=== PATIENT | male | born 1970 | race African-American/Black ===

== ENCOUNTER 2022-07-20 13:56 | Inpatient (IN) | payer OTHER ==
[2022-07-20 15:54] VITALS: BMI 20.3
[2022-07-20] MEDS ORDERED: POLYETHYLENE GLYCOL (HEALTHYLAX) 3350 17 GM PACKET PO PRN (18:22)
[2022-07-20] MEDS ORDERED: BISMUTH SUBSALICYLATE 524 MG/30 ML PO PRN (18:22)
[2022-07-20] MEDS ORDERED: ONDANSETRON *ODT* 4 MG TABLET SL PRN (18:22)
[2022-07-20] MEDS ORDERED: BENZOCAINE/MENTHOL (CHLORASEPTIC ) LOZENGE MM PRN (18:22)
[2022-07-20] MEDS ORDERED: NICOTINE 10 MG CARTRIDGE (INHALER) IH PRN (18:22)
[2022-07-20] MEDS ORDERED: NALOXONE HCL (KLOXXADO) 8 MG SPRAY NS PRN (18:22)
[2022-07-20] MEDS ORDERED: DICYCLOMINE HCL 10 MG CAPSULE PO PRN (18:22)
[2022-07-20] MEDS ORDERED: LOPERAMIDE HCL 2 MG CAPSULE PO PRN (18:22)
[2022-07-20] MEDS ORDERED: ACETAMINOPHEN 325 MG TABLET (FP) PO PRN (18:22)
[2022-07-20] MEDS ORDERED: MAGNESIUM HYDROX 2400MG/30ML ORAL SUSPENSION 30 ML CUP PO PRN (18:22)
[2022-07-20] MEDS ORDERED: MAG HYDROX/AL HYDROX/SIMETH 30 ML UNIT-DOSE CUP PO PRN (18:22)
[2022-07-20] MEDS: PRENATAL VITAMINS W/ FOLIC ACID TABLET (FP) PO SCH (19:47)
[2022-07-20] MEDS: IBUPROFEN 400 MG TABLET (FP) PO PRN (19:47)
[2022-07-20] MEDS: NICOTINE 21 MG/24 HOURS TOPICAL PATCH TD SCH (19:53)
[2022-07-20] MEDS ORDERED: MELATONIN 5 MG TABLETS PO SCH (22:00)
[2022-07-20] MEDS: SULFAMETHOXAZOLE/TRIMETHOPRIM 800MG/160MG D.S. TABLET PO SCH (22:10)
[2022-07-20] MEDS: THIAMINE HCL 100 MG TABLET (FP) PO SCH (22:10)
[2022-07-20] MEDS: diazePAM 5 MG TABLET PO SCH (22:12)
[2022-07-21] MEDS: diazePAM 5 MG TABLET PO SCH ×4 (05:45→22:31)
[2022-07-21] MEDS: ACETAMINOPHEN 325 MG TABLET (FP) PO PRN (05:48)
[2022-07-21] MEDS: SULFAMETHOXAZOLE/TRIMETHOPRIM 800MG/160MG D.S. TABLET PO SCH ×2 (10:44→22:31)
[2022-07-21] MEDS: METHOCARBAMOL 500 MG TABLET PO PRN (10:44)
[2022-07-21] MEDS: hydrOXYzine PAMOATE 25 MG CAPSULE (FP) PO PRN (10:45)
[2022-07-21] MEDS: PRENATAL VITAMINS W/ FOLIC ACID TABLET (FP) PO SCH (10:45)
[2022-07-21] MEDS: NICOTINE 21 MG/24 HOURS TOPICAL PATCH TD SCH (10:45)
[2022-07-21 11:14] LABS: HEMATOCRIT 33.3 % (35.4-49); MCH 31.9 pg (25.7-33.7); MCHC 33.1 g/dl (32.0-35.9); MEAN CELL VOLUME 96.4 fl (80-96); MEAN PLT VOLUME 8.4 fl (7.5-11.1); PLATELET COUNT 382 10^3/uL (134-434); RBC 3.45 M/mm3 (4.00-5.60); RDW 14.6 % (11.9-15.9); WHITE BLOOD COUNT 7.1 K/mm3 (4.0-10.0)
[2022-07-21 11:29] LABS: CALCIUM 8.5 mg/dL (8.5-10.1)
[2022-07-21 11:30] LABS: ALBUMIN 2.6 g/dl (3.4-5.0); BLOOD UREA NITROGEN 26.1 mg/dL (7-18)
[2022-07-21 11:33] LABS: CREATININE 0.9 mg/dL (0.55-1.3)
[2022-07-21 11:34] LABS: BILIRUBIN,TOTAL 0.2 mg/dL (0.2-1)
[2022-07-21 11:35] LABS: TOT PROT 6.8 g/dl (6.4-8.2)
[2022-07-21] MEDS: IBUPROFEN 600 MG TABLET (FP) PO PRN (18:11)
[2022-07-21] MEDS ORDERED: SUVOREXANT 10 MG TABLET PO PRN (22:00)
[2022-07-21] MEDS: QUEtiapine FUMARATE 100 MG TABLET (FP) PO SCH (22:32)
[2022-07-21] MEDS: THIAMINE HCL 100 MG TABLET (FP) PO SCH (22:32)
[2022-07-21] MEDS: IBUPROFEN 400 MG TABLET (FP) PO PRN (22:36)
[2022-07-22] MEDS: diazePAM 5 MG TABLET PO SCH ×3 (05:44→23:00)
[2022-07-22] MEDS: IBUPROFEN 600 MG TABLET (FP) PO PRN (05:46)
[2022-07-22] MEDS: SULFAMETHOXAZOLE/TRIMETHOPRIM 800MG/160MG D.S. TABLET PO SCH ×2 (10:34→22:59)
[2022-07-22] MEDS: PRENATAL VITAMINS W/ FOLIC ACID TABLET (FP) PO SCH (10:34)
[2022-07-22] MEDS: hydrOXYzine PAMOATE 25 MG CAPSULE (FP) PO PRN (10:34)
[2022-07-22] MEDS: NICOTINE 21 MG/24 HOURS TOPICAL PATCH TD SCH (10:34)
[2022-07-22] MEDS ORDERED: cloNIDine HCL 0.1 MG TABLET PO ONE (13:30)
[2022-07-22] MEDS: QUEtiapine FUMARATE 100 MG TABLET (FP) PO SCH (22:59)
[2022-07-22] MEDS: THIAMINE HCL 100 MG TABLET (FP) PO SCH (23:40)
[2022-07-23] MEDS: diazePAM 5 MG TABLET PO SCH ×2 (06:06→17:25)
[2022-07-23] MEDS: IBUPROFEN 600 MG TABLET (FP) PO PRN ×2 (06:07→22:25)
[2022-07-23] MEDS: NICOTINE 21 MG/24 HOURS TOPICAL PATCH TD SCH (10:35)
[2022-07-23] MEDS: PRENATAL VITAMINS W/ FOLIC ACID TABLET (FP) PO SCH (10:35)
[2022-07-23] MEDS: SULFAMETHOXAZOLE/TRIMETHOPRIM 800MG/160MG D.S. TABLET PO SCH (10:36)
[2022-07-23] MEDS: METHOCARBAMOL 500 MG TABLET PO PRN (10:36)
[2022-07-23] MEDS: hydrOXYzine PAMOATE 25 MG CAPSULE (FP) PO PRN (10:36)
[2022-07-23 13:02] LABS: CALCIUM 8.7 mg/dL (8.5-10.1)
[2022-07-23 13:03] LABS: BLOOD UREA NITROGEN 14.4 mg/dL (7-18)
[2022-07-23 13:06] LABS: CREATININE 0.9 mg/dL (0.55-1.3)
[2022-07-23] MEDS ORDERED: SODIUM POLYSTYRENE SULFONATE 15 GM/60 ML BOTTLE PO ONE (14:00)
[2022-07-23] MEDS: CLINDAMYCIN HCL 150 MG CAPSULE (FP) PO SCH ×2 (14:20→22:25)
[2022-07-23] MEDS: QUEtiapine FUMARATE 100 MG TABLET (FP) PO SCH (22:25)
[2022-07-23] MEDS: THIAMINE HCL 100 MG TABLET (FP) PO SCH (22:25)
[2022-07-24] MEDS: METHOCARBAMOL 500 MG TABLET PO PRN (00:08)
[2022-07-24] MEDS: hydrOXYzine PAMOATE 25 MG CAPSULE (FP) PO PRN (00:09)
[2022-07-24] MEDS: CLINDAMYCIN HCL 150 MG CAPSULE (FP) PO SCH (05:17)
[2022-07-24] MEDS: IBUPROFEN 600 MG TABLET (FP) PO PRN (05:19)
[2022-07-24] MEDS ORDERED: diazePAM 5 MG TABLET PO ONE (06:00)
[2022-07-24 09:34] VITALS: BP 129/78; PULSE 87; RESP 18; TEMP 96.8
[2022-07-24] MEDS ORDERED: SODIUM POLYSTYRENE SULFONATE 15 GM/60 ML BOTTLE PO ONE (09:52)
[2022-07-24] MEDS: NICOTINE 21 MG/24 HOURS TOPICAL PATCH TD SCH (10:08)
[2022-07-24] MEDS: PRENATAL VITAMINS W/ FOLIC ACID TABLET (FP) PO SCH (10:08)
[2022-07-24] MEDS: ACETAMINOPHEN 325 MG TABLET (FP) PO PRN (10:08)
== END 2022-07-24 11:18 | disposition home or self-care (01) | DRG 774 ==
LOC: YASAS 13:56 → Y6N 18:48
PROVIDERS: ADMIT Allergy & Immunology; ATTEND Surgery
PROC: HZ2ZZZZ Detoxification Services for Substance Abuse Treatment (ICD-10-PCS; principal; 2022-07-20)
DX: F10.230 Alcohol dependence with withdrawal, uncomplicated (principal); F14.20 Cocaine dependence, uncomplicated; F12.20 Cannabis dependence, uncomplicated; F17.210 Nicotine dependence, cigarettes, uncomplicated; F20.9 Schizophrenia, unspecified; F19.282 Other psychoactive substance dependence with psychoactive substance-induced sleep disorder; F19.24 Other psychoactive substance dependence with psychoactive substance-induced mood disorder; E87.5 Hyperkalemia; L03.116 Cellulitis of left lower limb; R63.4 Abnormal weight loss; Z68.20 Body mass index [BMI] 20.0-20.9, adult; Z88.0 Allergy status to penicillin; Z56.0 Unemployment, unspecified; Z59.00 Homelessness unspecified
CPT/HCPCS: 36415; 80048; 80053; 84132; 85027; 86780; C9803-CS; U0003; U0005